=== PATIENT | male | born 1950 | race Caucasian/White ===

== ENCOUNTER → 2021-05-16 | Outpatient (CLI) | payer OTHER ==
[~2021-05-16] MED LIST: ACETAMINOPHEN650 M2 PO; AMIODARONE HCL200 MG PO; ATORVASTATIN CA40 MG PO; BUSPIRONE HCL15 MG PO; CLINDAMYCIN HC300 MG PO; COREG 3.125M3.125 MG PO; ELIQUIS5 MG PO; ENTRESTO 24 MG1 EACH PO; ESCITALOPRAM OX20 MG PO; FISH OIL 1,0001 EAC1 PO; FOLIC ACID1 MG PO; HYDROCODON-ACE1 EAC4 PO; HYDROXYZINE HCL25 MG PO; JARDIANCE25 MG PO; LASIX 40 MG TAB40 MG PO; LEVOFLOXACIN500 MG PO; LEVOTHYROXINE25 MCG PO; LISINOPRIL10 MG PO; OMEPRAZOLE20 MG PO; OZEMPIC1 MG/0.71 SQ; VITAMIN D325 MC6 PO; ZYLOPRIM 300 M300 MG PO
== END ==
LOC: HEART 5 10:13
DX: I50.22 Chronic systolic (congestive) heart failure (principal); I42.0 Dilated cardiomyopathy; I08.1 Rheumatic disorders of both mitral and tricuspid valves
CPT/HCPCS: 93306

== ENCOUNTER → 2021-05-16 | Outpatient (CLI) | payer OTHER ==
[2021-05-16 13:04] LABS: HEMOGLOBIN 16.4 gm/dl (14.0-17.5); RED BLOOD COUNT 4.92 M/UL (4.20-5.50); WHITE BLOOD COUNT 7.4 K/UL (4.5-11.0)
[2021-05-16 13:27] LABS: BUN/CREATININE RATIO 19 (0-10)
== END ==
LOC: RAD 12:06
PROVIDERS: Internal Medicine Cardiovascular Disease
DX: Z45.02 Encounter for adjustment and management of automatic implantable cardiac defibrillator (principal); I50.22 Chronic systolic (congestive) heart failure; I42.0 Dilated cardiomyopathy; I45.4 Nonspecific intraventricular block
CPT/HCPCS: 36415; 71046; 80048; 85025

== ENCOUNTER 2021-05-21 07:16 | Outpatient (CLI) | payer OTHER ==
[~2021-05-21] VITALS: Ht 180.3 cm; Wt 106.6 kg
[2021-05-21] MEDS ORDERED: JARDIANCE25 MG PO (08:30)
[2021-05-21] MEDS ORDERED: OZEMPIC1 MG/0.71 SQ (08:32)
[2021-05-21] MEDS ORDERED: ACETAMINOPHEN650 M2 PO (08:32)
[2021-05-21] MEDS ORDERED: VITAMIN D325 MC6 PO (08:33)
[2021-05-21] MEDS ORDERED: BUSPIRONE HCL15 MG PO (08:34)
[2021-05-21] MEDS ORDERED: ELIQUIS5 MG PO (08:34)
[2021-05-21] MEDS ORDERED: FISH OIL 1,0001 EAC1 PO (08:35)
[2021-05-21] MEDS ORDERED: ESCITALOPRAM OX20 MG PO (08:35)
[2021-05-21] MEDS ORDERED: ENTRESTO 24 MG1 EACH PO (08:36)
[2021-05-21] MEDS ORDERED: COREG 3.125M3.125 MG PO (08:36)
[2021-05-21] MEDS ORDERED: ZYLOPRIM 300 M300 MG PO (08:36)
[2021-05-21] MEDS ORDERED: AMIODARONE HCL200 MG PO (08:37)
[2021-05-21] MEDS ORDERED: LEVOTHYROXINE25 MCG PO (08:38)
[2021-05-21] MEDS ORDERED: OMEPRAZOLE20 MG PO (08:38)
[2021-05-21] MEDS ORDERED: ATORVASTATIN CA40 MG PO (08:39)
[2021-05-21] MEDS ORDERED: LASIX 40 MG TAB40 MG PO (08:40)
[2021-05-21] MEDS ORDERED: FOLIC ACID1 MG PO (08:41)
[2021-05-21] MEDS ORDERED: LISINOPRIL10 MG PO (08:42)
[2021-05-21] MEDS ORDERED: HYDROCODON-ACE1 EAC4 PO (09:05)
[2021-05-21] MEDS ORDERED: CLINDAMYCIN HC300 MG PO (09:05)
[2021-05-21] MEDS ORDERED: LEVOFLOXACIN500 MG PO (09:05)
[2021-05-21] MEDS ORDERED: HYDROXYZINE HCL25 MG PO (12:16)
== END 2021-05-22 10:30 | disposition home or self-care (01) ==
LOC: CATH 07:16 → PROG CARE 11:46 → CATH 05-22 10:30
DX: Z45.02 Encounter for adjustment and management of automatic implantable cardiac defibrillator (principal); I42.0 Dilated cardiomyopathy; I11.0 Hypertensive heart disease with heart failure; I50.22 Chronic systolic (congestive) heart failure; I44.7 Left bundle-branch block, unspecified; E11.9 Type 2 diabetes mellitus without complications; I25.10 Atherosclerotic heart disease of native coronary artery without angina pectoris; I47.2 Ventricular tachycardia; I49.01 Ventricular fibrillation; E78.5 Hyperlipidemia, unspecified; M10.9 Gout, unspecified; E03.9 Hypothyroidism, unspecified; Z87.891 Personal history of nicotine dependence; Z79.01 Long term (current) use of anticoagulants; Z79.84 Long term (current) use of oral hypoglycemic drugs; Z79.899 Other long term (current) drug therapy
CPT/HCPCS: 71045; 82962; 93005; 93641; 99152; 99153; C1769; C1882; C1900; J1200; J1644; J2250; J3010; J3370; J7030; J7040; J7050; Q9965

== ENCOUNTER → 2021-10-02 | Outpatient (CLI) | payer OTHER | LOC: HEART 5 08:49 | DX: R06.02 Shortness of breath (principal); Z87.891 Personal history of nicotine dependence; Z79.899 Other long term (current) drug therapy | CPT/HCPCS: 94010; 94729 ==